=== PATIENT | female | born 1990 | race Caucasian/White ===

== ENCOUNTER 2020-10-12 23:56 | Emergency (ER) | payer BC ==
[~2020-10-12] VITALS: Ht 162.6 cm; Wt 59.0 kg
--- NOTE | 2020-10-13 | NUR ---
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 Ankle appears swollen and bruised. Pt. states she injured it when kicking a ball and landing wrong, heard a pop on L ankle.
[2020-10-13] MEDS ORDERED: IBUP-1955 PO (01:31)
[2020-10-13] MEDS ORDERED: HYDR-4209 PO (01:31)
--- NOTE | 2020-10-13 01:51 | NUR ---
Patient discharged to home in stable condition. Written and verbal after care instructions given. Patient verbalizes understanding of instructions. Stressed follow up or return to ER for worsening s/s. Gait training with crutches done, pt. ambulates w/ steady gait. Short leg ankle splint applied. CMS intact. Vss. All belongings taken.
[2020-10-13 01:53] VITALS: BP 110/67
== END 2020-10-13 01:53 | disposition home or self-care (01) ==
LOC: ER 23:56
DX: S82.62XA Displaced fracture of lateral malleolus of left fibula, initial encounter for closed fracture (principal); W01.0XXA Fall on same level from slipping, tripping and stumbling without subsequent striking against object, initial encounter; Y93.66 Activity, soccer; Y92.89 Other specified places as the place of occurrence of the external cause
CPT/HCPCS: 73610; A4663